=== PATIENT | female | born 1940 | race Caucasian/White ===

== ENCOUNTER → 2016-11-05 | Outpatient (CLI) | payer OTHER, MEDICARE ==
--- NOTE | 2016-11-05 16:50 | MA ---
Screening Digital Mammogram With iCAD Analysis Clinical Indications: Routine screening. Technique: Standard cephalocaudal and mediolateral oblique projections were obtained. This examinatio n was processed by the iCAD computer aided detection system. Comparison: May 2015, September 2013, August 2012, July 2011, February 2010, September 2008. Breast density: Type C; Heterogeneously dense. Findings: CAD was reviewed. No masses, suspicious calcifications or other signs of malignancy are id entified. There has been no significant change in the appearance of either breast. Impression: Negative mammogram. BI-RADS 1. Recommendation: Routine mammographic screening in one year as long as physical examination is negativ [facility] result [facility] to the patient. Dense breast parenchyma diminishes mammographic sensitivity. Negative mammography should not preclude additional workup of a clinically suspicious finding. The patient's information is entered into a reminder system with a target due date for her next mammo gram.
== END ==
LOC: BMCIMAGING 14:09
DX: Z12.31 Encounter for screening mammogram for malignant neoplasm of breast (principal)
CPT/HCPCS: G0202

== ENCOUNTER → 2017-06-10 | Outpatient (CLI) | payer OTHER, MEDICARE | LOC: FIMAGING 11:49 | PROVIDERS: ATTEND Psychiatry & Neurology Neurology | DX: R41.3 Other amnesia (principal) ==

== ENCOUNTER 2018-11-19 11:09 | Emergency (ER) | payer OTHER, MEDICARE ==
--- NOTE | 2018-11-19 11:22 | EDPHY ---
H & P Time Seen by Provider: 11/19/18 11:22 HPI/ROS: CHIEF COMPLAINT: Fast heart rate HISTORY OF PRESENT ILLNESS: Patient fell like yesterday her heart was "thumpy" but no chest pain shortness of breath or dizziness or syncope. This morning at 7:00 a.m. She feels like she can feel her heart beating faster and she feels little bit breathless. Symptoms mild to moderate. She is on metoprolol but does not know why. Denies today chest pain or shortness of breath. No recent travel in the last week or immobilization. Not dizzy. Not better or worse with anything. REVIEW OF SYSTEMS: Eye: no change in vision ENT: no sore throat Cardiac: HPI Pulmonary: no cough or SOB Abdomen: no vomiting, diarrhea, abdominal pain Musculoskeletal: no back pain Skin: Negative Neuro: no headache Constitutional: no fever : no urinary symptoms A comprehensive 10 point review of systems is otherwise negative aside from elements mentioned in the history of present illness. PAST MEDICAL HISTORY: On metoprolol but she does not know the reason. Denies diabetes hypertension hypercholesterolemia. Social history: Here with General Appearance: Alert and conversant, cooperative. Eyes: No scleral icterus. ENT, Mouth: Normal mucous membranes. Respiratory: Normal respiratory effort, breath sounds equal, lungs are clear to auscultation. Cardiovascular: Irregular rate over 100. Gastrointestinal: Abdomen is soft and non tender. Neurological: Alert, face symmetric, normal motor and sensory in extremities. Skin: No rashes Musculoskeletal: No peripheral edema. Psychiatric: Not agitated. Emergency Department course/MDM: Initial EKG shows atrial fibrillation. Additional metoprolol, medication list from [facility], labs to include troponin and D-dimer. 1318: Results discussed, patient 2nd EKG shows sinus rhythm. Her medication list was obtained from [facility] includes Aricept, statin, memantine, metoprolol 12.5 twice a day, baby aspirin and zolpidem. 1325: Dr. Reddy recommends doubling metoprolol adding Eliquis and office follow-up. She resolved into sinus rhythm in the emergency department. The patient does not present with signs or symptoms of acute ischemia. Her D- dimer is negative low pretest probability for pulmonary embolism. She does not have a history of GI bleed or other high bleeding risk to recent surgery. She does not have history of frequent falls. Risk benefit alternatives of oral anticoagulation with Eliquis discussed with the patient and consented. Discussed stroke prevention versus potential risk of hemorrhage. Smoking Status: Never smoked Constitutional: Initial Vital Signs Temperature (C) 36.3 C 11/19/18 11:14 Heart Rate 115 H 11/19/18 11:14 Respiratory Rate 18 11/19/18 11:14 Blood Pressure 132/64 H 11/19/18 11:14 O2 Sat (%) 100 11/19/18 11:14 O2 Delivery Mode Room Air Allergies/Adverse Reactions: No Known Allergies Allergy (Unverified 11/19/18 11:14) Home Medications: Medication Instructions Recorded Apixaban [Eliquis] 5 mg PO BID #20 tab 11/19/18 Medical Decision Making - Diagnostics EKG Interpretation: 12-lead EKG interpreted by me; official reading is in computer system. My interpretation is atrial fibrillation with LVH and repolarization abnormality. Imaging Results: Imaging Impressions Chest X-Ray 11/19/18 11:37 Impression: 1. Hyperexpanded lungs. Consider underlying COPD and emphysema. 2. No active cardiopulmonary disease seen. Imaging: I viewed and interpreted images myself Differential Diagnosis: Differential considered including but not limited to MAT, sinus tachycardia, atrial fibrillation, atrial flutter, VT or PVCs Consult/Admit Bed Type: [place] [id number] - Data Points Laboratory Results: Laboratory Results 11/19/18 11:25 11/19/18 11:25 11/19/18 11/19/18 11/19/18 11:28 11:25 11:25 WBC RBC Hgb Hct MCV MCH MCHC RDW Plt Count MPV Neut % (Auto) Lymph % (Auto) [place] % (Auto) Eos % (Auto) Baso % (Auto) Nucleat RBC Rel Count Absolute Neuts (auto) Absolute Lymphs (auto) Absolute Monos (auto) Absolute Eos (auto) Absolute Basos (auto) Absolute Nucleated RBC Immature Gran % Immature Gran # PT 13.2 SEC SEC (12.0-15.0) INR 0.98 (0.83-1.16) APTT 26.3 SEC SEC (23.0-38.0) D-Dimer 0.38 ug/mLFEU ug/mLFEU (0.00-0.50) Sodium 141 mEq/L mEq/L (135-145) Potassium 4.1 mEq/L mEq/L (3.5-5.2) Chloride 107 mEq/L mEq/L (97-110) Carbon Dioxide 19 mEq/l L mEq/l (22-31) Anion Gap 15 mEq/L H mEq/L (6-14) BUN 22 mg/dL mg/dL (7-23) Creatinine 0.8 mg/dL mg/dL (0.6-1.0) Estimated GFR > 60 Glucose 80 mg/dL mg/dL (70-100) Calcium 9.3 mg/dL mg/dL (8.5-10.4) POC Troponin I 0.00 ng/mL ng/mL (0.00-0.08) 11/19/18 11:25 WBC 13.99 10^3/uL H 10^3/uL (3.80-9.50) RBC 4.70 10^6/uL 10^6/uL (4.18-5.33) Hgb 14.7 g/dL g/dL (12.6-16.3) Hct 45.3 % % (38.0-47.0) MCV 96.4 fL fL (81.5-99.8) MCH 31.3 pg pg (27.9-34.1) MCHC 32.5 g/dL g/dL (32.4-36.7) RDW 12.5 % % (11.5-15.2) Plt Count 246 10^3/uL 10^3/uL (150-400) MPV 9.0 fL fL (8.7-11.7) Neut % (Auto) 87.2 % H % (39.3-74.2) Lymph % (Auto) 8.2 % L % (15.0-45.0) [place] % (Auto) 3.8 % L % (4.5-13.0) Eos % (Auto) 0.0 % L % (0.6-7.6) Baso % (Auto) 0.3 % % (0.3-1.7) Nucleat RBC Rel Count 0.0 % % (0.0-0.2) Absolute Neuts (auto) 12.20 10^3/uL H 10^3/uL (1.70-6.50) Absolute Lymphs (auto) 1.15 10^3/uL 10^3/uL (1.00-3.00) Absolute Monos (auto) 0.53 10^3/uL 10^3/uL (0.30-0.80) Absolute Eos (auto) 0.00 10^3/uL L 10^3/uL (0.03-0.40) Absolute Basos (auto) 0.04 10^3/uL 10^3/uL (0.02-0.10) Absolute Nucleated RBC 0.00 10^3/uL 10^3/uL (0-0.01) Immature Gran % 0.5 % % (0.0-1.1) Immature Gran # 0.07 10^3/uL 10^3/uL (0.00-0.10) PT INR APTT D-Dimer Sodium Potassium Chloride Carbon Dioxide Anion Gap BUN Creatinine Estimated GFR Glucose Calcium POC Troponin I Medications Given: Discontinued Medications Apixaban (Eliquis) 5 mg PO EDNOW ONE Stop: 11/19/18 13:29 Last Admin: 11/19/18 14:03 Dose: 5 mg Metoprolol Tartrate (Lopressor Injection) 5 mg IVP Q5M MAN Stop: 11/19/18 11:56 Last Admin: 11/19/18 13:42 Dose: Not Given Point of Care Test Results: Chemistry 11/19/18 11:28 POC Troponin I 0.00 ng/mL ng/mL (0.00-0.08) Departure - Departure Disposition: Home, Routine, Self-Care Clinical Impression: Atrial fibrillation Qualifiers: Atrial fibrillation type: paroxysmal Qualified Code(s): I48.0 - Paroxysmal atrial fibrillation Condition: Good Instructions: Apixaban (By mouth), A-fib (Atrial Fibrillation) (ED) Additional Instructions: You have been prescribed a blood thinner called Eliquis. Double your metoprolol dosing to 25 mg oral tablet twice a day once in the morning and once in the evening. Referrals: Kayla Morleos MD [Primary Care Provider] - As per Instructions Olga Velasquez MD [Medical Doctor] - 11/22/18 Prescriptions: Apixaban [Eliquis] 5 mg PO BID #20 tab
--- NOTE | 2018-11-19 11:40 | CPEKG ---
Test Reason : OPEN Blood Pressure : / mmHG Vent. Rate : 098 BPM Atrial Rate : 105 BPM P-R Int : 205 ms QRS Dur : 092 ms QT Int : 365 ms P-R-T Axes : -52 025 000 degrees QTc Int : 467 ms Atrial fibrillation Ventricular premature complex Probable LVH with secondary repol abnrm Confirmed by Gwyn Gates ([id number]) on 11/19/2018 11:39:57 AM Referred By: Gwyn Gates Confirmed By:Gwyn Gates
[2018-11-19 11:51] LABS: PLATELET COUNT 246 10^3/uL (150-400)
[2018-11-19] MEDS: METOPROLOL TARTRATE 5 MG/5 ML INJ IVP SCH ×2 (11:59→13:42)
[2018-11-19 12:00] LABS: INR 0.98 (0.83-1.16); PROTIME(PATIENT) 13.2 SEC (12.0-15.0)
--- NOTE | 2018-11-19 13:00 | CPEKG ---
Test Reason : OPEN Blood Pressure : / mmHG Vent. Rate : 060 BPM Atrial Rate : 058 BPM P-R Int : 139 ms QRS Dur : 084 ms QT Int : 449 ms P-R-T Axes : 046 044 042 degrees QTc Int : 449 ms Sinus rhythm Atrial premature complex Probable left atrial enlargement Confirmed by Sonia Esquivel ([id number]) on 11/19/2018 1:00:20 PM Referred By: SONIA ESQUIVEL Confirmed By:Sonia Esquivel
[2018-11-19] MEDS ORDERED: APIXABAN 5 MG TAB PO ONE (13:28)
[2018-11-19 14:07] VITALS: BP 125/69
== END 2018-11-19 14:06 | disposition home or self-care (01) ==
DX: I48.0 Paroxysmal atrial fibrillation (principal)
CPT/HCPCS: 84484-ER; 96374